=== PATIENT | male | born 1965 | race Caucasian/White ===

== ENCOUNTER 2020-10-09 20:34 | Emergency (ER) | payer MEDICARE, SELFPAY ==
[2020-10-09 20:47] VITALS: BP 140/80; PULSE 80; RESP 16; TEMP 36.5; O2SAT 97; BMI 26.9
--- NOTE | 2020-10-09 22:34 | PC.NURSE ---
Pt with catheter placed yesterday after procedure. Pt states has had no teaching of catheter care. states pain getting worse with any movement of catheter. states doesn't know why wylie was placed. states did not receive any teaching on catheter. Instructed patient of care of catheter and explained how to secure catheter to prevent pulling on penis. Pt states understanding.
--- NOTE | 2020-10-09 22:45 | ED_ITS ---
HPI - Male Genitourinary General Chief complaint: Urogenital-Male Stated complaint: problems with urinary catheter Time Seen by Provider: 10/09/20 22:25 Source: patient Mode of arrival: Ambulatory Limitations: no limitations History of Present Illness HPI Narrative: Patient is a 55-year-old male who presents with Espinal catheter problem. He said he had triple bypass surgery in June of 2020 and since then he was told he needed to see a urologist. He saw a urologist yesterday Dr. Navarrete, it sounds as though they did a cystoscopy Espinal catheter was placed and he woke up with the catheter. he now presents with catheter problems. He says he is leaking all around all the Espinal catheter. It is irritating to him. He denies any fever or chills. He is supposed to follow-up with urology next week. Related Data Home Medications Medication Instructions Recorded Confirmed insulin glargine [Lantus U-100 #0 12/06/15 Insulin] Previous Rx's Medication Instructions Recorded ciprofloxacin HCl [Cipro] 500 mg PO BID #20 tab 12/06/15 hydrocodone-acetaminophen [Humble] 1 tab PO Q4HP PRN #10 tab 12/06/15 [id number]-[id number]-GH 1 drp OTIC QID #10 ml 12/06/15 Allergies Allergy/AdvReac Type Severity Reaction Status Date / Time Penicillins [PENICILLINS] Allergy Severe Unverified 08/04/17 12:35 Review of Systems Constitutional Constitutional: Denies chills and Denies fever(s) ENT Ears, Nose, Mouth, and Throat: Denies sore throat Cardiovascular Cardiovascular: Denies chest pain and Denies dyspnea on exertion Respiratory Respiratory: Denies cough and Denies dyspnea on exertion Gastrointestinal Gastrointestinal: Denies nausea and Denies vomiting Genitourinary Genitourinary: Reports as per HPI Genitourinary: Reports as per HPI Musculoskeletal Musculoskeletal: Denies back pain and Denies myalgias Integumentary/Breasts Skin/Breast: Denies pruritus and Denies rash Patient History Medical History Coronary artery disease Exam Initial Vital Signs Initial Vital Signs: Vital Signs Temperature 97.7 F 10/09/20 20:47 Pulse Rate 80 10/09/20 20:47 Respiratory Rate 16 10/09/20 20:47 Blood Pressure 140/80 10/09/20 20:47 Pulse Oximetry 97 10/09/20 20:47 GENERAL: Well-appearing, well-nourished and in no acute distress. CARDIOVASCULAR: peripheral pulses in tact, cap refill <2 sec RESPIRATORY: No respiratory distress, speaks in full sentences without difficulty : Espinal catheter in place clear urine there is obvious leakage around the catheter site EXTREMITIES: Normal range of motion, no clubbing or edema. Neurovascularly intact NEUROLOGICAL: Cranial nerves II through XII grossly intact. Normal gait and speech. SKIN: Warm, dry, no petechiae, no rashes or lesions. Course Vital Signs Vital signs: Vital Signs - 8 hr 10/09/20 20:47 10/09/20 23:30 Temperature 97.7 F Pulse Rate 80 69 Respiratory Rate 16 17 Blood Pressure 140/80 125/81 Pulse Oximetry 97 98 MDM - Male Genitourinary Lab Data Labs: Urine Dip Bedside Urine Glucose Negative Bedside Urine Bilirubin - Negative Bedside Urine Ketone - Negative Urine Specific [place] 1.010 Bedside Urine Occult Blood +++ Bedside Urine pH 6.0 Bedside Urine Protein - Negative Bedside Urine Urobilinogen - Negative Bedside Urine Nitrite - Negative Bedside Urine Leukocytes - Negative Esterase MDM Narrative Medical decision making narrative: 10:[address] Navarrete, Updated onpatient's symptoms he is familiar with patient at this time he believes patient have a distal urethral stricture and has no issue with catheter being removed. Espinal catheter has been removed and patient has urinated prior to discharge at this time he has hematuria but no signs of infection. He also has follow-up with Urology in 1 week. Discharge Plan Departure Patient Disposition: Home Clinical Impression: Complication of Espinal catheter Qualifiers: Encounter type: initial encounter Qualified Code(s): T83.9XXA - Unspecified complication of genitourinary prosthetic device, implant and graft, initial encounter Urethral stricture Qualifiers: Urethral stricture type: unspecified stricture type Urethral stricture sex- location: male urethra-unspecified Qualified Code(s): N35.919 - Unspecified urethral stricture, male, unspecified site Instructions: DI for Urethral Dilation Activity Restrictions/Additional Instructions: *You have been diagnosed with urethral stricture *What to do: Please follow-up with urology as scheduled. He got a narrowing in urethra which was likely the reason for your Espinal catheter. Be sure to drink lots of fluid and be sure that you are urinating so that you not require another Espinal catheter *Continue to take medications as directed *Follow up with your primary care provider in 2-3 days *Return to ER if you should have inability to urinate painful frequent urination or any new, worsening or concerning symptoms Prescriptions: No Action insulin glargine [Lantus U-100 Insulin] 100 UNIT/1 ML solution Qty: 0 RF: 0 hydrocodone-acetaminophen [[place]] 5 MG/325 MG tablet 1 tab PO Q4HP PRNQty: 10 RF: 0 ciprofloxacin HCl [Cipro] 500 MG tablet 500 mg PO BID Qty: 20 RF: 0 yrwrdigq-yxulyqbbj-OD 10 ML drops,suspension 1 drp OTIC QID Qty: 10 RF: 0 Referrals: Fran Mcpherson MD [Primary Care Provider] - Michael Navarrete MD [Non-Staff] -
--- NOTE | 2020-10-09 23:00 | PC.NURSE ---
Provider gave order to remove catheter at this time. Removed without difficulty. Pt aware of needing to urinate before discharge. Provided with water.
[2020-10-09 23:30] VITALS: BP 125/81; PULSE 69; RESP 17; O2SAT 98
== END 2020-10-09 22:31 | disposition home or self-care (01) ==
PROVIDERS: Emergency Provider Emergency Medicine; PCP Family Medicine
DX: T83.9XXA Unspecified complication of genitourinary prosthetic device, implant and graft, initial encounter (principal); N35.919 Unspecified urethral stricture, male, unspecified site
CPT/HCPCS: 51798; 81003; 99282; 99283

== ENCOUNTER 2021-03-13 08:57 | Emergency (ER) | payer MEDICARE, SELFPAY ==
[2021-03-13 09:08] VITALS: BP 186/79; PULSE 97; RESP 14; TEMP 36.3; O2SAT 97; BMI 27.4
--- NOTE | 2021-03-13 09:19 | PC.NURSE ---
Catheter removed without complications.
--- NOTE | 2021-03-13 09:42 | ED.RECABL ---
HPI - Recheck/Abnormal Lab/Rx General Chief Complaint: Recheck/Abnormal Lab/Rx Stated Complaint: NEEDS A CATHETER REMOVED Time Seen by Provider: 03/13/21 09:34 Source: patient Mode of arrival: Ambulatory Limitations: no limitations History of Present Illness HPI narrative: Patient here only for Espinal catheter removal. Has a [address] He saw his urologist at [facility] in [place] for placement of this catheter on this past Wednesday. He brought paperwork with him. He was instructed to remove the catheter this morning on this date. He does not feel comfortable removing it and chose to come here to have it removed. No recent illness. No fever chills. Patient seeing Urology for ongoing urethral problems since procedure this past summer. This is not new. He understands that the Espinal catheter removal today may cause urinary retention. Return precautions reviewed with him. Related Data Home Medications Medication Instructions Recorded Confirmed insulin glargine 100 unit/mL #0 12/06/15 subcutaneous solution (Lantus U-100 Insulin) Previous Rx's Medication Instructions Recorded ciprofloxacin HCl 500 mg tablet 500 mg PO BID #20 tab 12/06/15 (Cipro) hydrocodone 5 mg-acetaminophen 325 1 tab PO Q4HP PRN #10 tab 12/06/15 mg tablet ([place]) padpslke-whckignwa-xxcljedxu 3.5 1 drp OTIC QID #10 ml 12/06/15 mg-10,000 unit/mL-1 % ear drops,susp Allergies Allergy/AdvReac Type Severity Reaction Status Date / Time Penicillins Allergy Verified 03/13/21 09:13 Review of Systems Review of Systems Narrative: GENERAL: Denies chills, fatigue, malaise, fever, sweats. HEENT: Denies sinus pain, ear pain, sore throat RESPIRATORY: Denies dyspnea, cough CARDIOVASCULAR: Denies chest pain, palpitations GASTROINTESTINAL: Denies nausea, vomiting, abdominal pain : Denies dysuria, frequency, hematuria, positive bladder pain that is not new MUSCULOSKELETAL: denies muscle or bony pain SKIN: Denies rash, skin lesions NEUROLOGIC: Denies weakness, numbness ROS Unobtainable: All systems reviewed & are unremarkable except as noted in HPI and below Patient History Medical History Coronary artery disease Social History Smoking Status: Unknown if ever smoked Smoking Status: Unknown if ever smoked alcohol intake frequency: holidays/special occasions only Substance Use Type: does not use Exam Narrative Exam Narrative: GENERAL: in no distress, not toxic not dyspneic HEAD: Normocephalic. GASTROINTESTINAL: Abdomen soft, non-tender, mild suprapubic tenderness. No peritoneal signs BACK: No flank tenderness. NEURO: AOx4. SKIN: Warm and dry PSYCH: Not anxious, is cooperative Initial Vital Signs Initial Vital Signs: Vital Signs Temperature 97.3 F L 03/13/21 09:08 Pulse Rate 97 H 03/13/21 09:08 Respiratory Rate 14 03/13/21 09:08 Blood Pressure 186/79 H 03/13/21 09:08 Pulse Oximetry 97 03/13/21 09:08 Course Course Course Narrative: No new issues during course of stay Reevaluation(s) Reevaluation #1: Patient tolerate removal of catheter very well. Return precautions reviewed with him. Time: 09:46 Vital Signs Vital signs: Vital Signs - 8 hr 03/13/21 09:08 Temperature 97.3 F L Pulse Rate 97 H Respiratory Rate 14 Blood Pressure 186/79 H Pulse Oximetry 97 MDM - Recheck/Abnormal Lab/Rx Differential Diagnosis Differential diagnosis: Likely other (Encounter for removal of Espinal catheter) MDM Narrative Medical decision making narrative: Appropriate for discharge home. No laboratory studies indicated. Patient only here for removal of Espinal catheter. No complications. Has follow-up established with his urologist at [facility]. Discharge Plan Departure Patient Disposition: Home Clinical Impression: Encounter for Espinal catheter removal Instructions: DI for Urinary Retention in Men Activity Restrictions/Additional Instructions: Return immediately if your unable to urinate or have any bladder discomfort. Return if any fever chills. See your urologist at [facility] as scheduled. Continue their instructions. Be sure to have your blood pressure recheck with her family doctor. Prescriptions: No Action insulin glargine [Lantus U-100 Insulin] 100 UNIT/1 ML solution Qty: 0 0RF hydrocodone-acetaminophen [[place]] 5 MG/325 MG tablet 1 tab PO Q4HP PRNQty: 10 0RF ciprofloxacin HCl [Cipro] 500 MG tablet 500 mg PO BID Qty: 20 0RF umwkmzkl-fhvfxrmji-AX 10 ML drops,suspension 1 drp OTIC QID Qty: 10 0RF Referrals: Kenneth Tracy, [Primary Care Provider] -
[2021-03-13 09:55] VITALS: BP 139/82; PULSE 90; RESP 17; O2SAT 95
== END 2021-03-13 09:56 | disposition home or self-care (01) ==
PROVIDERS: Emergency Provider Emergency Medicine; PCP Student in an Organized Health Care Education/Training Program
DX: Z46.6 Encounter for fitting and adjustment of urinary device (principal)
CPT/HCPCS: 99281

== ENCOUNTER 2024-11-12 15:01 | Emergency (ER) | payer MEDICARE, SELFPAY ==
[2024-11-12 15:06] VITALS: BP 139/72; PULSE 91; RESP 16; TEMP 36.5; O2SAT 99; BMI 29.0
--- NOTE | 2024-11-12 15:17 | DI.US.S_ITS ---
PROCEDURE: US PERIPH VENOUS LOW EXTREM RT INDICATIONS: felt pop suddenly TECHNIQUE: Real-time imaging, as well as color and pulse Doppler interrogation, were performed of the lower extremity deep veins from the inguinal ligament to the popliteal fossa, with documentation of the visualized calf veins. COMPARISON: None. FINDINGS: The common femoral, femoral, popliteal, and the visualized calf veins are normally compressible, and free of intraluminal thrombus. Color and pulse Doppler demonstrate normal phasic intraluminal flow. There is normal augmentation response to distal compression maneuver. High within the right calf there is a curvilinear hypoechoic fluid collection with some internal debris. This measures approximately 6 cm in craniocaudal dimension and is located within or deep to the gastrocnemius/soleus muscle belly. IMPRESSION: No findings of lower extremity deep venous thrombosis. Findings concerning for lower leg flexor tendon rupture with associated hematoma. Dictated by: Padmini Wilson M.D. on 11/12/2024 at 15:35 Approved by: Padmini Wilson M.D. on 11/12/2024 at 15:38
--- NOTE | 2024-11-12 15:45 | ED_ITS ---
HPI - Extremity Injury (Lower) General Chief Complaint: Extremity Injury, Lower Stated Complaint: injury right calf Time Seen by Provider: 11/12/24 15:39 Source: patient Mode of arrival: Ambulatory History of Present Illness HPI Narrative: Mr. Deon Johnson is a very pleasant 59-year-old male with a past medical history of diabetes, CAD who presents to the emergency department for right calf pain since this morning. Patient was standing, somewhat leaning forward to push his toolbox, when he felt a pop in the right lower leg, he now has swelling of the right calf and it is getting worse and describes the pain as 10 in 10. He is able to walk but with difficulty. He has not currently or recently taken any fluoroquinolones. He does have a history of hardware in the right ankle. No numbness, tingling, shortness of breath, foot pain. He takes a baby aspirin, no other blood thinners. Related Data Home Medications ?Medication ?Instructions ?Recorded ?Confirmed insulin glargine 100 unit/mL ##0 12/06/15 subcutaneous solution (Lantus U-100 Insulin) Previous Rx's ?Medication ?Instructions ?Recorded ciprofloxacin HCl 500 mg tablet 500 mg PO BID #20 tabs 12/06/15 (Cipro) hydrocodone 5 mg-acetaminophen 325 1 tab PO Q4HP PRN # 10 tabs 12/06/15 mg tablet ([place]) irjhlhhq-tlbstrfba-rpnsijnlv 3.5 1 drp OTIC QID #10 mL 12/06/15 mg-10,000 unit/mL-1 % ear drops,susp hydrocodone 5 mg-acetaminophen 325 1 tab PO Q4-6H PRN pain #12 tabs 11/12/24 mg tablet Allergies Allergy/AdvReac Type Severity Reaction Status Date / Time Penicillins Allergy Verified 03/13/21 09:13 Review of Systems Review of Systems ROS Unobtainable: All systems reviewed & are unremarkable except as noted in HPI and below Patient History Medical History Coronary artery disease Social History Smoking Status: Former smoker Smoking Status: Former smoker alcohol intake frequency: holidays/special occasions only Exam Narrative Exam Narrative: GENERAL: 59 year old patient appears stated age. Well-developed patient, in no acute distress. HEAD: Atraumatic. Normocephalic. EYES: No scleral icterus. No injection or drainage. NECK: Trachea midline. Cervical ROM intact. CARDIOVASCULAR: Regular rate RESPIRATORY: ?Nonlabored respirations. ?Speaking in clear, full sentences. EXTREMITIES: 2+ DP and PT pulses bilaterally. Brisk capillary refill in the toes. Patient's right calf is visibly more swollen than the left. He has firm tenderness to palpation of both medial and lateral gastrocnemius muscle. Unable to perform Butcher test due to pain with squeezing of the calf. Patient's Achilles tendons are both palpable and intact overlying the distal lower leg bilaterally. NEURO: AOx3. ?Clear speech. ?Moves all 4 extremities appropriately with exception of R calf. SKIN: No rash or erythema of visible areas. Initial Vital Signs Initial Vital Signs: Vital Signs Temperature 97.7 F 11/12/24 15:06 Pulse Rate 91 H 11/12/24 15:06 Respiratory Rate 16 11/12/24 15:06 Blood Pressure 139/72 11/12/24 15:06 Pulse Oximetry 99 11/12/24 15:06 Oxygen Delivery Method Room Air 11/12/24 15:06 Course Orders Ordered: ED Orders 11/12/24 15:17 US periph venous low extrem rt Stat 11/12/24 18:37 Consult to [facility] Stat Discontinued Medications Hydrocodone Bitart/Acetaminophen (Hydrocodone/Acet 5/325 Tablet) 1 tab PO NOW ONE Stop: 11/12/24 16:24 Last Admin: 11/12/24 16:33 Dose: 1 tab Documented By: IVAN Ketorolac Tromethamine (Ketorolac 30 Mg/Ml Vial) 30 mg IM NOW ONE Stop: 11/12/24 16:24 Last Admin: 11/12/24 16:33 Dose: 30 mg Documented By: IVAN Vital Signs Vital signs: Vital Signs - 8 hr 11/12/24 15:06 Temperature 97.7 F Pulse Rate 91 H Respiratory Rate 16 Blood Pressure 139/72 Pulse Oximetry 99 Oxygen Delivery Method Room Air MDM - Extremity Injury (Lower) Medical Records Attestation: I reviewed the patient's medical records. Imaging Data RLE Venous US: Radiologist's Impression: PROCEDURE: US PERIPH VENOUS LOW EXTREM RT INDICATIONS: felt pop suddenly TECHNIQUE: Real-time imaging, as well as color and pulse Doppler interrogation, were performed of the lower extremity deep veins from the inguinal ligament to the popliteal fossa, with documentation of the visualized calf veins. COMPARISON: None. FINDINGS: The common femoral, femoral, popliteal, and the visualized calf veins are normally compressible, and free of intraluminal thrombus. Color and pulse Doppler demonstrate normal phasic intraluminal flow. There is normal augmentation response to distal compression maneuver. High within the right calf there is a curvilinear hypoechoic fluid collection with some internal debris. This measures approximately 6 cm in craniocaudal dimension and is located within or deep to the gastrocnemius/soleus muscle belly. IMPRESSION: No findings of lower extremity deep venous thrombosis. Findings concerning for lower leg flexor tendon rupture with associated hematoma. Dictated by: Padmini Wilson M.D. on 11/12/2024 at 15:35 Approved by: Padmini Wilson M.D. on 11/12/2024 at 15:38 MDM Narrative Medical decision making narrative: 59-year-old male with a past medical history of diabetes, CAD who presents to the emergency department for right calf pain since this morning. Differential diagnosis includes but isn't limited to right calf muscle tear, strain, sprain, tendon rupture, Achilles tendon rupture, hematoma, DVT, etc. On exam patient is in no acute distress, nontoxic appearing, vital signs within normal limits. His bilateral lower extremities are neurovascularly intact, right calf is swollen and tender to touch however compartment still compressible. Unable to perform Butcher test due to pain. Patient declines tib-fib x-ray however is agreeable to right lower extremity ultrasound. We will treat pain with [place] and Toradol, Michael wrap applied for compression and ice also applied for comfort. Concern for calf rupture. Patient's pain improved but not resolved. Ultrasound findings concerning for lower leg flexor tendon rupture with associated hematoma. Discussed the case with on-call orthopedic surgeon, Dr. Bradshaw, who recommends patient have o utpatient MRI for further evaluation, at this time he recommends weight-bearing as tolerated and orthopedic boot or splint for support, which ever patient's most comfortable in. Patient was placed into a right orthopedic boot and given crutches and advised weight bear as tolerated. Discussed rice therapy and the importance of follow up with Orthopedics for further management. He was prescribed a short course of hydrocodone/acetaminophen as needed for severe breakthrough pain. Discussed ED return precautions. Patient verbalized understanding of all information is agreeable to the plan. He is stable for discharge home, son here to drive him home. Discharge Plan Departure Patient Disposition: Home Clinical Impression: Hematoma of right lower leg Gastrocnemius muscle tear Qualifiers: Encounter type: initial encounter Laterality: right Qualified Code(s): S86.111A - Strain of other muscle(s) and tendon(s) of posterior muscle group at lower leg level, right leg, initial encounter Instructions: DI for Calf Muscle Strain Activity Restrictions/Additional Instructions: Dear Mr. Chavarria , Thank you for coming to the emergency department. Today you were evaluated for right calf injury and your ultrasound shows findings concerning for a lower leg flexor tendon rupture with associated hematoma. Please call to schedule an appointment with [facility] for further management. Please use crutches and the orthopedic walking boot as needed. Please use RICE therapy for your pain in addition to ibuprofen/acetaminophen. Rest the painful area. Ice the area of pain/swelling for at least 15 minutes, 4x a day. Compress the area of swelling using a brace, wrap, or splint if applied. Elevate the painful or swollen extremity by supporting it above the level of the heart with pillows when sitting or laying. Please take Ibuprofen (Motrin/Advil) or Acetaminophen (Tylenol) for pain. These are available over the counter. You may take Ibuprofen 600 mg every 8 hours with food for pain. You may also take Acetaminophen 650 mg every 4-6 hours for pain. Do not exceed 3000 mg of Tylenol a day as this can cause liver damage. Do not drink alcohol with either of these medications. You have been prescribed a short course of narcotic medications. These are potentially dangerous and addictive medications that should be used carefully. While on these medications you cannot drive or operate heavy machinery. Additionally, you cannot sign legal documents or perform any duties such as this. Many people get constipated on narcotic medications so it would be advisable to discuss stool softeners with the pharmacist when you scrap picker your prescription. Please understand that we cannot provide further refills of narcotics or controlled substances through the ED and your pain management will need to be through your Primary Care Provider Please follow up with your primary care doctor within the next 2-3 days for ER follow-up. (If you do not have a PCP you can call [phone]. ?to schedule an appointment with an [facility] Primary Care Provider) IF YOU DEVELOP ANY NEW OR WORSENING SYMPTOMS, RETURN TO THE ER! Please read the attached instructions, they highlight more specific treatments and interventions for you at home. Thank you for letting me participate in your care, Kimber Trevino PA-C Prescriptions: New hydrocodone-acetaminophen 5-325 mg tablet 1 tab PO Q4-6H PRN (Reason: pain) Qty: 12 0RF No Action insulin glargine [Lantus U-100 Insulin] 100 UNIT/1 ML solution Qty: 0 hydrocodone-acetaminophen [[place]] 5 MG/325 MG tablet 1 tab PO Q4HP PRNQty: 10 0RF ciprofloxacin HCl [Cipro] 500 MG tablet 500 mg PO BID Qty: 20 0RF ogfupjtp-mqlhbhqqa-QU 10 ML drops,suspension 1 drp OTIC QID Qty: 10 0RF Referrals: Kenneth Tracy, [Primary Care Provider, Medical] Stand Alone Forms: Patient Portal/API
[2024-11-12] MEDS: KETOROLAC 30 MG/ML VIAL IM (16:33)
[2024-11-12] MEDS: HYDROCODONE/ACET 5/325 TABLET 1 TAB PO (16:33)
[2024-11-12 18:58] VITALS: BP 162/88; PULSE 92; O2SAT 98
== END 2024-11-12 18:58 | disposition home or self-care (01) ==
PROVIDERS: Emergency Provider Physician Assistant; PCP Student in an Organized Health Care Education/Training Program
DX: S86.111A Strain of other muscle(s) and tendon(s) of posterior muscle group at lower leg level, right leg, initial encounter (principal); S80.11XA Contusion of right lower leg, initial encounter; X58.XXXA Exposure to other specified factors, initial encounter
CPT/HCPCS: 93971; 96372; 99283; J1885

== ENCOUNTER → 2024-11-14 16:33 | Outpatient (CLI) | payer MEDICARE, SELFPAY ==
--- NOTE | 2024-11-14 16:34 | DI.MRI.S_ITS ---
PROCEDURE: MR LOWER LEG RT WO CON INDICATIONS: right lower leg pain TECHNIQUE: Noncontrast coronal and sagittal T1 spin echo and STIR; axial T1 spin echo and T2 fast spin echo with fat saturation through the right leg COMPARISON: [facility], CR, XR ANKLE 3+ VIEWS RIGHT, 03/31/2022, 10:46. FINDINGS: Image quality: Excellent. Bones: Plate and screw fixation of the right distal fibula, and screw fixation of the right medial malleolus, creating artifacts and limits evaluation. The marrow signal is otherwise normal for age. Soft tissues: There is full-thickness tear of the plantaris, with small amount of fluid/hematoma between the medial head of the gastrocnemius and the soleus. In addition, there is full-thickness, full width tear of the medial aspect of the anterior gastrocnemius aponeurosis, with mild superior muscle retraction, and associated moderate amount of fluid/hematoma the lateral aspect of the anterior gastrocnemius aponeurosis is intact. Mild muscle edema of the medial head of the gastrocnemius, and of the proximal, lateral head of the gastrocnemius. Mild diffuse subcutaneous edema in the mid and distal leg. The distal Achilles tendon is grossly intact. IMPRESSION: 1. Plate and screw fixation of the right distal fibula and screw fixation of the right medial malleolus, creating artifacts and limits evaluation. 2. Full-thickness tear of the plantaris tendon with small amount of hematoma/fluid. 3. Full-thickness, full width tear of the medial aspect of the anterior gastrocnemius aponeurosis, with mild superior muscle retraction. Dictated by: Jessica Dennis M.D. on 11/16/2024 at 10:09 Approved by: Jessica Dennis M.D. on 11/16/2024 at 10:18
== END ==
PROVIDERS: Referring Provider Physician Assistant Surgical; Visit Provider Physician Assistant Surgical
DX: S80.11XA Contusion of right lower leg, initial encounter (principal); S86.111A Strain of other muscle(s) and tendon(s) of posterior muscle group at lower leg level, right leg, initial encounter; S86.811A Strain of other muscle(s) and tendon(s) at lower leg level, right leg, initial encounter; X58.XXXA Exposure to other specified factors, initial encounter
CPT/HCPCS: 73718